=== PATIENT | female | born 2000 | race American Indian/Alaskan Native ===

== ENCOUNTER 2019-04-19 16:52 | Emergency (ER) | payer MEDICAID, OTHER ==
[2019-04-19 16:59] VITALS: BP 119/61
--- NOTE | 2019-04-19 17:11 | Event Note ---
ED Screening Note Date of service: 04/19/19 Time: 17:00 ED Screening Note: 18 y/o female c/o dysuria time 1 week intermittently with suprapelvic pain. This initial assessment/diagnostic orders/clinical plan/treatment(s) is/are subject to change based on patients health status, clinical progression and re- assessment by fellow clinical providers in the ED. Further treatment and workup at subsequent clinical providers discretion. Patient/guardian urged not to elope from the ED as their condition may be serious if not clinically assessed and managed. Initial orders include:
--- NOTE | 2019-04-19 17:11 | Emergency Department Report ---
ED Dysuria HPI - HPI Chief Complaint: Urogenital-Female Stated Complaint: BURNING URINATION Time Seen by Provider: 04/19/19 17:09 Duration: 2 Days Symptoms: Dysuria: Yes, Frequency: No, Suprapubic Pain: No, Flank Pain: No, Fever: No, Hematuria: No, Abdominal Pain: No, Previous UTI's: No Other History: 18 YO TO ER WITH DYSURIA AND CONCERN FOR YEAST INFECTION. SHE STATES THIS IS HOW SHE FEELS EACH TIME SHE GETS YEAST INFECTION. NO CONERN FOR STI. LMP 2 W AGO. ED Review of Systems ROS: Stated complaint: BURNING URINATION Other details as noted in HPI Comment: All other systems reviewed and negative ED Past Medical Hx - Past Medical History Previous Medical History?: No - Surgical History Past Surgical History?: No - Social History Smoking Status: Never Smoker Substance Use Type: None - Medications Home Medications: Home Medications Medication Instructions Recorded Confirmed Last Taken Type Fluconazole [Diflucan TAB] 150 mg PO ONCE #1 tablet 04/19/19 Unknown Rx Sulfamethoxazole/Trimethoprim 1 each PO BID #6 tablet 04/19/19 Unknown Rx [Bactrim DS TAB] Dysuria Exam - Exam General: Vital signs noted. No distress. Alert and acting appropriately. Exam: Yes Moist Mucous Membranes, No CVA Tenderness, No Abdominal Tenderness, No Rigidity or Guarding ED Course Vital Signs 04/19/19 16:58 Temperature 98.1 F Pulse Rate 83 Respiratory 16 Rate Blood Pressure 119/61 [Left] O2 Sat by Pulse 100 Oximetry ED Medical Decision Making - Medical Decision Making Labs 04/19/19 17:53 Urine Color Yellow Urine Turbidity Cloudy Urine pH 6.0 Ur Specific [place] 1.028 Urine Protein 100 mg/dl Urine Glucose (UA) Neg Urine Ketones Tr Urine Blood Mod Urine Nitrite Neg Ur Reducing Substances Not Reportable Urine Bilirubin Neg Urine Ictotest Not Reportable Urine Urobilinogen 2.0 Ur Leukocyte Esterase Mod Urine WBC (Auto) > 182.0 H Urine RBC (Auto) > 182.0 U Epithel Cells (Auto) 5.0 Ur Transition Epith Cell 5 Urine Mucus 3+ Urine HCG, Qual Negative Vital Signs 04/19/19 16:58 Temperature 98.1 F Pulse Rate 83 Respiratory 16 Rate Blood Pressure 119/61 [Left] O2 Sat by Pulse 100 Oximetry VSS NO ABD PAIN NO FEVER NO CVA TENDERNESS UA NOTED GIVEN HER URINE LEUKS-TX FOR UTI AND GIVE DIFLUCAN X 1 AGAIN DISCUSSED STI WITH PT AND SHE IS NOT CONCERNED FOR STI ON DC SHE IS IN NAD. TAKING PO I'VE INSTRUCTED HER THAT WE NEED TO BE SURE THIS UTI GOES AWAY-SO SHE SHOULD FOLLOW UP WITH PCP/OB WHEN FINISHING THE ANTIBIOTICS. SHE VERBALIZES UNDERSTANDING. Critical care attestation.: If time is entered above; I have spent that time in minutes in the direct care of this critically ill patient, excluding procedure time. ED Disposition Clinical Impression: UTI (urinary tract infection), Vaginitis Disposition: DC-01 TO HOME OR SELFCARE Is pt being admited?: No Does the pt Need Aspirin: No Condition: Stable Instructions: Dysuria (ED) Additional Instructions: DIET TOLERATED MEDS ORDERED TODAY IN ER FOLLOW INSTRUCTIONS ON THE BOTTLE FOLLOW UP PCP WITHIN 48 HOURS TO ENSURE YOU ARE GETTING BETTER ACTIVITY TOLERATED MOTRIN OR TYLENOL FOR PAIN OR FEVER RETURN TO THE ER FOR WORSENING SYMPTOMS NOT RELIEVED BY YOUR MEDICATIONS. Prescriptions: Sulfamethoxazole/Trimethoprim [Bactrim DS TAB] 1 each PO BID #6 tablet Fluconazole [Diflucan TAB] 150 mg PO ONCE #1 tablet Referrals: MANI LOPES MD [Primary Care Provider] - 3-5 Days Time of Disposition: 18:29
[2019-04-19 18:45] LABS: HCG Qualitative,Urine Negative (Negative)
[2019-04-19 18:49] LABS: Bilirubin,Urine NEG (Negative); Blood,Urine MOD (Negative); Color,Urine Yellow (Yellow); Mucus,Urine 3+ /HPF
[2019-04-19 18:50] LABS: RBC,Urine > 182.0 /HPF (0.0-6.0); WBC,Urine > 182.0 /HPF (0.0-6.0)
== END 2019-04-19 18:51 | disposition home or self-care (01) ==
LOC: ED 16:52
DX: N39.0 Urinary tract infection, site not specified (principal); N76.0 Acute vaginitis; B96.89 Other specified bacterial agents as the cause of diseases classified elsewhere
CPT/HCPCS: 81001; 81025; 99283

== ENCOUNTER 2019-05-17 16:15 | Emergency (ER) | payer OTHER ==
--- NOTE | 2019-05-17 16:22 | Event Note ---
ED Screening Note ED Screening Note: FELL OUT OF BED LAST WEEK "BENT IN HALF" CO LOW BACK PAIN DENIES DYSURIA This initial assessment/diagnostic orders/clinical plan/treatment(s) is/are subject to change based on patients health status, clinical progression and re- assessment by fellow clinical providers in the ED. Further treatment and workup at subsequent clinical providers discretion. Patient/guardian urged not to elope from the ED as their condition may be serious if not clinically assessed and managed. Initial orders include: TONY JON IN ACC
[2019-05-17] MEDS ORDERED: IBUPROFEN PO ONE (18:29)
[2019-05-17 20:11] LABS: Bilirubin,Urine NEG (Negative); Blood,Urine LG (Negative); Color,Urine Yellow (Yellow); Mucus,Urine 2+ /HPF; RBC,Urine > 182.0 /HPF (0.0-6.0); Urobilinogen,Urine < 2.0 mg/dL (<2.0)
[2019-05-17 20:12] LABS: HCG Qualitative,Urine Negative (Negative)
[2019-05-17] MEDS ORDERED: ROCEPHIN/NS 1 GM/50 ML 1 GM/50 ML BAG IV ONE (20:22)
[2019-05-17] MEDS ORDERED: NACL 0.9% 1000 ML 1,000 ML IV ONE (20:22)
--- NOTE | 2019-05-17 20:43 | Emergency Department Report ---
ED Back Pain/Injury HPI - General Chief Complaint: Back Pain/Injury Stated Complaint: BACK PAIN Time Seen by Provider: 05/17/19 16:21 Source: patient Limitations: No Limitations - History of Present Illness Initial Comments: pt presents for left flank pain 05/11 radiating to superpubic x 1 week, does endorse fall from bed last week however flank pain is primary complaint there is is associated urinary frequency and urgency no vaginal discharge or bleeding. there is no fever no chills no n/v. no hx of renal stones. LMP:1 week ago , was dx with uti 1 week ago however she didnot take rx as rx'd Complaint: back pain Onset/Timin -: week(s) Similar Symptoms Previously: Yes Place: home Radiation: flank Severity: moderate Severity scale (0 -10): 5 Quality: burning, aching Consistency: constant Improves With: none Worsens With: movement, other (voiding ) Context: fall Associated Symptoms: denies: weakness, difficulty urinating, incontinence, fever/chills, constipation, nausea/vomiting - Related Data Previous Rx's Medication Instructions Recorded Last Taken Type Fluconazole [Diflucan TAB] 150 mg PO ONCE #1 tablet 04/19/19 Unknown Rx Sulfamethoxazole/Trimethoprim 1 each PO BID #6 tablet 04/19/19 Unknown Rx [Bactrim DS TAB] Ibuprofen [Motrin 800 MG tab] 800 mg PO Q8HR PRN #30 tablet 05/17/19 Unknown Rx Nitrofurantoin Hern[place]/M-Cryst 100 mg PO Q12HR 7 Days #14 capsule 05/17/19 Unknown Rx [Macrobid CAP] Allergies Allergy/AdvReac Type Severity Reaction Status Date / Time No Known Allergies Allergy Verified 05/17/19 16:17 ED Review of Systems ROS: Stated complaint: BACK PAIN Other details as noted in HPI Constitutional: denies: chills, fever Eyes: denies: eye pain, eye discharge, vision change ENT: denies: ear pain, throat pain Respiratory: denies: cough, shortness of breath, wheezing Cardiovascular: denies: chest pain, palpitations Endocrine: no symptoms reported Gastrointestinal: denies: abdominal pain, nausea, vomiting, diarrhea Genitourinary: urgency, frequency. denies: hematuria, discharge Musculoskeletal: back pain Skin: denies: rash, lesions Neurological: denies: headache, weakness, paresthesias Psychiatric: denies: anxiety, depression Hematological/Lymphatic: denies: easy bleeding, easy bruising ED Past Medical Hx - Past Medical History Previous Medical History?: No - Surgical History Past Surgical History?: No - Social History Smoking Status: Never Smoker Substance Use Type: None - Medications Home Medications: Home Medications Medication Instructions Recorded Confirmed Last Taken Type Fluconazole [Diflucan TAB] 150 mg PO ONCE #1 tablet 04/19/19 Unknown Rx Sulfamethoxazole/Trimethoprim 1 each PO BID #6 tablet 04/19/19 Unknown Rx [Bactrim DS TAB] Ibuprofen [Motrin 800 MG tab] 800 mg PO Q8HR PRN #30 tablet 05/17/19 Unknown Rx Nitrofurantoin [place]/M-Cryst 100 mg PO Q12HR 7 Days #14 capsule 05/17/19 Unknown Rx [Macrobid CAP] ED Physical Exam - General Limitations: No Limitations General appearance: alert, in no apparent distress - Head Head exam: Present: atraumatic, normocephalic - Eye Eye exam: Present: PERRL, EOMI Pupils: Present: normal accommodation - ENT ENT exam: Present: mucous membranes moist - Neck Neck exam: Present: normal inspection, full ROM. Absent: tenderness, lymphadenopathy - Respiratory Respiratory exam: Present: normal lung sounds bilaterally. Absent: respiratory distress, wheezes, stridor, chest wall tenderness - Cardiovascular Cardiovascular Exam: Present: regular rate, normal rhythm, normal heart sounds. Absent: systolic murmur, diastolic murmur, rubs, gallop - GI/Abdominal GI/Abdominal exam: Present: soft, normal bowel sounds. Absent: distended, tenderness, guarding, rebound, rigid, bruit, hernia - Rectal Rectal exam: Present: deferred - Extremities Exam Extremities exam: Present: normal inspection, full ROM, normal capillary refill. Absent: tenderness - Back Exam Back exam: Present: normal inspection, full ROM, tenderness, CVA tenderness (L). Absent: muscle spasm, paraspinal tenderness, vertebral tenderness, rash noted - Neurological Exam Neurological exam: Present: alert, oriented X3, CN II-XII intact, normal gait, reflexes normal. Absent: motor sensory deficit - Psychiatric Psychiatric exam: Present: normal affect, normal mood - Skin Skin exam: Present: warm, dry, intact, normal color. Absent: rash ED Course Vital Signs 05/17/19 21:35 Temperature 99.7 F H Pulse Rate 72 Respiratory 14 Rate Blood Pressure 109/58 [Left] O2 Sat by Pulse 99 Oximetry ED Medical Decision Making - Lab Data Result diagrams: 05/17/19 20:43 05/17/19 20:43 - Radiology Data Radiology results: report reviewed, image reviewed Ordering Physician: MARY ANN LARSON NP Date of Service: 05/17/19 Procedure(s): CT abdomen pelvis wo con Accession Number(s): [id number] cc: MARY ANN LARSON NP CT ABDOMEN AND PELVIS WITHOUT CONTRAST, 05/17/2019 INDICATION: Low back pain. No history of trauma. TECHNICAL: Multiple axial CT images of the abdomen and pelvis were acquired without intravenous contrast. Sagittal and coronal reformats were obtained. All CTs at this facility utilize dose reduction techniques including automated exposure control, iterative reconstruction and weight based dosing when appropriate to reduce patient radiation dose to as low as reasonable achievable. COMPARISON: Lumbar spine radiograph series, 05/17/2019. No prior abdominal imaging is available for comparison. FINDINGS: Limited imaging of the bilateral lung bases shows no evidence of acute abnormality. Abdomen: Evaluation is limited due to the lack of intravenous contrast and possibly of abdominal fat. Given these limitations, the liver, gallbladder, spleen, pancreas and bilateral kidneys show no definitive evidence of acute abnormality. The large and small bowel appear grossly normal in caliber. The appendix is not clearly identified. Pelvis: No large amount of free pelvic fluid is seen. The urinary bladder appears normal. Evaluation of bony structures demonstrate evaluation of bony structures shows no evidence of acute bony abnormality. IMPRESSION: 1. Technically limited study as described above without CT evidence of acute inflammatory or obstructive process. Signer Name: Prisca Powell MD Signed: 05/17/2019 9:49 PM Workstation Name: [id number] Transcribed By: EB Dictated By: Prisca Powell MD Electronically Authenticated By: Prisca Powell MD Signed Date/Time: 05/17/192148 DD/ 45 TD/TT: - Medical Decision Making ct abd pelvis: no stone no pyelonephritis , no hydro. this is UTI plan dc to home with rx for macrobid, ibuprofen follow up with pcp in 2-3 days , continue to hydrate return to ed if symptoms worsen. Critical care attestation.: If time is entered above; I have spent that time in minutes in the direct care of this critically ill patient, excluding procedure time. ED Disposition Clinical Impression: UTI (urinary tract infection) Qualifiers: Urinary tract infection type: acute cystitis Hematuria presence: without hematuria Qualified Code(s): N30.00 - Acute cystitis without hematuria Disposition: TO HOME OR SELFCARE Is pt being admited?: No Does the pt Need Aspirin: No Condition: Stable Instructions: Urinary Tract Infection in Women (ED) Prescriptions: Nitrofurantoin [place]/M-Cryst [Macrobid CAP] 100 mg PO Q12HR 7 Days #14 capsule Ibuprofen [Motrin 800 MG tab] 800 mg PO Q8HR PRN #30 tablet PRN Reason: pain Referrals: MANI LOPES MD [Primary Care Provider] - 3-5 Days Forms: Work/School Release Form(ED) Time of Disposition: 22:15
[2019-05-17 20:59] LABS: Basophils % (Auto) 0.3 % (0.0-1.8); Eosinophils % (Auto) 0.3 % (0.0-4.3); Hematocrit 36.5 % (30.3-42.9); Hemoglobin 12.1 gm/dl (10.1-14.3); Lymphocytes # (Auto) 1.7 K/mm3 (1.2-5.4); Lymphocytes % (Auto) 20.3 % (13.4-35.0); Mean Corpuscular HGB Conc 33 % (30-34); Mean Corpuscular Volume 88 fl (79-97); Monocytes # (Auto) 0.8 K/mm3 (0.0-0.8); Monocytes % (Auto) 9.8 % (0.0-7.3); Platelet Count 297 K/mm3 (140-440); Red Blood Count 4.17 M/mm3 (3.65-5.03)
--- NOTE | 2019-05-17 21:01 | XRay Report ---
Examination: Lumbar spine radiograph series, 3 views, 05/17/2019 Clinical information: Low back pain for several days. No history of trauma. Comparison: None. Findings: There is normal alignment of the lumbar vertebral bodies. Vertebral body height and interve rtebral disc spaces appear well maintained. No significant bony degenerative change is identified. Impression: No radiographic evidence of acute bony abnormality of the lumbar spine. Signer Name: Prisca Powell MD Signed: 05/17/2019 8:57 PM Workstation Name: [id number]
[2019-05-17 21:22] LABS: Alanine Aminotransferase 7 units/L (7-56); Albumin 4.7 g/dL (3.9-5); BUN/Creatinine Ratio 11; Blood Urea Nitrogen 8 mg/dL (7-17); Calcium 9.3 mg/dL (8.4-10.2); Hemolysis Index 8
--- NOTE | 2019-05-17 21:54 | Cat Scan Report ---
CT ABDOMEN AND PELVIS WITHOUT CONTRAST, 05/17/2019 INDICATION: Low back pain. No history of trauma. TECHNICAL: Multiple axial CT images of the abdomen and pelvis were acquired without intravenous contr ast. Sagittal and coronal reformats were obtained. All CTs at this facility utilize dose reduction techniques including automated exposure control, iterative reconstruction and weight based dosing whe n appropriate to reduce patient radiation dose to as low as reasonable achievable. COMPARISON: Lumbar spine radiograph series, 05/17/2019. No prior abdominal imaging is available for co mparison. FINDINGS: Limited imaging of the bilateral lung bases shows no evidence of acute abnormality. Abdomen: Evaluation is limited due to the lack of intravenous contrast and possibly of abdominal fat. Given these limitations, the liver, gallbladder, spleen, pancreas and bilateral kidneys show no defi nitive evidence of acute abnormality. The large and small bowel appear grossly normal in caliber. The appendix is not clearly identified. Pelvis: No large amount of free pelvic fluid is seen. The urinary bladder appears normal. Evaluation of bony structures demonstrate evaluation of bony structures shows no evidence of acute [place] abnormality. IMPRESSION: 1. Technically limited study as described above without CT evidence of acute inflammatory or obstruct francesca process. Signer Name: Prisca Powell MD Signed: 05/17/2019 9:49 PM Workstation Name: [id number]
[2019-05-17 22:37] VITALS: BP 110/60
== END 2019-05-17 22:36 | disposition home or self-care (01) ==
LOC: ED 16:15
DX: N39.0 Urinary tract infection, site not specified (principal)
CPT/HCPCS: 36415; 72100; 74176; 80053; 81001; 81025; 85025; 96365; 99284; J0696; J7030